=== PATIENT | female | born 1950 | race Caucasian/White ===

== ENCOUNTER 2018-04-24 16:02 | Emergency (ER) | payer MEDICARE, OTHER ==
[~2018-04-24] VITALS: Ht 160 cm; Wt 76.7 kg
--- NOTE | 2018-04-24 16:38 | PHYS DOC ---
Past History Past Medical History: High Cholesterol Past Surgical History: Tonsillectomy Alcohol Use: None Drug Use: None Adult General Chief Complaint Chief Complaint: LOWEREXTREMITY INJURY [facility] HPI Patient is a 67-year-old female who presented complaining of right knee pain since this morning after jumping during gymnastics with her grandson as a constant pain that getting worse with standing up and activity. Patient complaining of mild edema of any. Patient denies focal neuro deficit and history of knee problem. Review of Systems Review of Systems Constitutional: Denies fever or chills [] Eyes: Denies change in visual acuity, redness, or eye pain [] HENT: Denies nasal congestion or sore throat [] Respiratory: Denies cough or shortness of breath [] Cardiovascular: No additional information not addressed in HPI [] GI: Denies abdominal pain, nausea, vomiting, bloody stools or diarrhea [] : Denies dysuria or hematuria [] Musculoskeletal: Denies back pain, reports joint pain [] Integument: Denies rash or skin lesions [] Neurologic: Denies headache, focal weakness or sensory changes [] Endocrine: Denies polyuria or polydipsia [] All other systems were reviewed and found to be within normal limits, except as documented in this note. Allergies Allergies Allergies Coded Allergies Type Severity Reaction Last Updated Verified prednisone Allergy Intermediate rash 04/24/18 Yes Physical Exam Physical Exam Constitutional: Well developed, well nourished, mild distress, non-toxic appearance. [] HENT: Normocephalic, atraumatic Eyes: PERRLA, EOMI, conjunctiva normal, no discharge. [] Neck: Normal range of motion, no tenderness, supple, no stridor. [] Cardiovascular:Heart rate regular rhythm, no murmur [] Lungs & Thorax: Bilateral breath sounds clear to auscultation [] Back: No tenderness, no CVA tenderness. [] Extremities: Right knee with marked edema in the superior part and painful range of motion without neurovascular deficit or focal neuro deficit Neurologic: Alert and oriented X 3, normal motor function, normal sensory function, no focal deficits noted. [] Psychologic: Affect normal, judgement normal, mood normal. [] Current Patient Data Vital Signs Vital Signs Date Time Temp Pulse Resp B/P (MAP) Pulse Ox O2 Delivery O2 Flow Rate FiO2 04/24/18 16:02 98.5 80 20 97 Room Air EKG EKG [] Radiology/Procedures Radiology/Procedures [[address], [place] [address] IMAGING REPORT Signed PATIENT: JEZ TREVINO ACCOUNT: [id number] : 1950 LOCATION: ER AGE: 67 SEX: F EXAM STATUS: PRE ER ORD. PHYSICIAN: JUVE BARR MD REASON: pain after exercising PROCEDURE: KNEE RIGHT 3V EXAM: Right knee, 3 views. HISTORY: Pain. COMPARISON: None. FINDINGS: 3 views of the right knee are obtained. There is no fracture, dislocation or subluxation. No joint effusion is seen. IMPRESSION: No acute osseous finding. Electronically signed by: Shala Aquino MD (04/24/2018 4:48 PM) [facility] DICTATED AND SIGNED BY: SHALA AQUINO MD DATE: 04/24/181647 CC: JUVE BARR MD; PCP,NO ~ ] Course & Med Decision Making Course & Med Decision Making Pertinent Imaging studies reviewed. (See chart for details) Evaluation of patient in ER showed 67-year-old female patient with right knee in and edema after jumping at gymnasium. Extensive did not show acute fracture. Patient had unremarkable physical exam except for moderate edema. Plan to apply Humberto wrap and provide crutches and give prescription for ibuprofen and instruction to avoid of bearing weight on follow-up with her primary care physician. Dragon Disclaimer Dragon Disclaimer This electronic medical record was generated, in whole or in part, using a voice recognition dictation system. Departure Departure: Impression: Primary Impression: Right knee sprain Disposition: 01 HOME, SELF-CARE (at 1703) Condition: STABLE Referrals: PCP,NO (PCP) Patient Instructions: Knee Sprain Additional Instructions: Apply ice on the affected area use crutches as needed Follow-up with your primary care physician in 3-5 days Return to ER if not getting better Scripts Ibuprofen (IBUPROFEN) 800 Mg Tablet 1 TAB PO TID, #30 TAB Prov: JUVE BARR MD 04/24/18 JUVE BARR MD Apr 24, 2018 16:38
--- NOTE | 2018-04-24 16:51 | RAD ---
EXAM: Right knee, 3 views. HISTORY: Pain. COMPARISON: None. FINDINGS: 3 views of the right knee are obtained. There is no fracture, dislocation or subluxation. No joint effusion is seen. IMPRESSION: No acute osseous finding. Electronically signed by: Nicole Aquino MD (04/24/2018 4:48 PM) [facility]
[2018-04-24] MEDS ORDERED: IBUP800T19 PO (17:05)
[2018-04-24 17:20] VITALS: BP 157/81
== END 2018-04-24 17:22 | disposition home or self-care (01) ==
LOC: ER 16:02
DX: S83.91XA Sprain of unspecified site of right knee, initial encounter (principal); E78.00 Pure hypercholesterolemia, unspecified; Z88.8 Allergy status to other drugs, medicaments and biological substances; X50.9XXA Other and unspecified overexertion or strenuous movements or postures, initial encounter; Y93.39 Activity, other involving climbing, rappelling and jumping off; Y92.39 Other specified sports and athletic area as the place of occurrence of the external cause; Y99.8 Other external cause status
CPT/HCPCS: 73562; 99284